=== PATIENT | female | born 1985 | race Caucasian/White ===

== ENCOUNTER 2019-01-13 08:34 | Emergency (ER) | payer MEDICAID ==
[~2019-01-13] VITALS: Ht 162.6 cm; Wt 108.9 kg
[2019-01-13 08:34] VITALS: BP_SYST 158
[~2019-01-13 08:34] MED LIST: PREN1TAB49
--- NOTE | 2019-01-13 08:34 | NUR ---
BROUGHT BACK TO BED #6 AND TRIAGED. REPORT GIVEN TO DONTE. FAMILY AT BEDSIDE FOR EVALUATION
--- NOTE | 2019-01-13 08:36 | NUR ---
FAMILY SPOKE WITH [facility] SECURITY AND DESCRIPTION GIVEN. SECURITY WATCHING SURROUNDING AREAS.
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
--- NOTE | 2019-01-13 08:50 | NUR ---
DR PIERRE AT BEDSIDE FOR EVALUATION
[2019-01-13] MEDS ORDERED: IBUPROFEN 600 MG TABLET PO ONE (09:15)
--- NOTE | 2019-01-13 10:15 | NUR ---
PT IS SPEAKING WITH POLICE AT THIS TIME ON HER PERSONAL CELL PHONE
[2019-01-13 10:20] VITALS: BP_SYST 137
--- NOTE | 2019-01-13 10:20 | NUR ---
Patient given written and verbal discharge instructions and verbalizes understanding. ER MD discussed with patient the results and treatment provided. Patient in stable condition. ID arm band removed. Rx of TRAMADOL, NAPROXEN given. Patient educated on pain management and to follow up with PMD. Pain Scale 0/10. Opportunity for questions provided and answered. Medication side effect fact sheet provided.
== END 2019-01-13 10:20 | disposition home or self-care (01) ==
LOC: SED 08:34
DX: S50.12XA Contusion of left forearm, initial encounter (principal); Z79.899 Other long term (current) drug therapy; Y04.0XXA Assault by unarmed brawl or fight, initial encounter; Y93.89 Activity, other specified; Y92.89 Other specified places as the place of occurrence of the external cause; Y99.8 Other external cause status
CPT/HCPCS: 99283